=== PATIENT | male | born 1950 | race Caucasian/White ===

== ENCOUNTER 2019-08-06 08:39 | Outpatient (REF) | payer MEDICARE, SELFPAY ==
[2019-08-06 11:30] LABS: Estmated Average Glucose 123; Hemoglobin A1C 5.9 % (4.0-6.0)
[2019-08-06 12:06] LABS: Chol HDL Ratio 2.68 mg/dL (1.0-5.00); Cholesterol 150 mg/dL (0-200); Glucose 93 mg/dL (65-115); HDL Cholesterol 56 mg/dL (60-100); LDL Cholesterol Calculated 86 mg/dL (50-129); LDL HDL Ratio 1.54 RATIO (0.00-3.22); Triglycerides 39 mg/dL (0-150)
== END 2019-08-06 08:40 | disposition home or self-care (01) ==
LOC: LAB 08:39
PROVIDERS: Family Provider Electrodiagnostic Medicine; PCP Electrodiagnostic Medicine; Visit Provider Dermatology
DX: Z01.89 Encounter for other specified special examinations (principal)
CPT/HCPCS: 80061; 82947; 83036

== ENCOUNTER → 2022-01-03 15:45 | Outpatient (BNVA) | payer MEDICARE, SELFPAY | PROVIDERS: Family Provider Electrodiagnostic Medicine; PCP Electrodiagnostic Medicine; Visit Provider Internal Medicine Cardiovascular Disease | DX: I25.10 Atherosclerotic heart disease of native coronary artery without angina pectoris (principal); E78.5 Hyperlipidemia, unspecified; I10 Essential (primary) hypertension; F17.200 Nicotine dependence, unspecified, uncomplicated; I25.2 Old myocardial infarction | CPT/HCPCS: 99214 ==

== ENCOUNTER → 2022-11-07 08:16 | Outpatient (BNVA) | payer MEDICARE, SELFPAY | PROVIDERS: Family Provider Electrodiagnostic Medicine; PCP Electrodiagnostic Medicine; Visit Provider Dermatology | DX: C44.629 Squamous cell carcinoma of skin of left upper limb, including shoulder (principal) | CPT/HCPCS: 12032; 17313 ==

== ENCOUNTER → 2022-11-21 08:47 | Outpatient (BNVA) | payer MEDICARE, SELFPAY | PROVIDERS: Family Provider Electrodiagnostic Medicine; PCP Electrodiagnostic Medicine; Visit Provider Dermatology | DX: Z48.02 Encounter for removal of sutures (principal) | CPT/HCPCS: 99212 ==

== ENCOUNTER → 2023-12-02 10:00 | Outpatient (BNVA) | payer MEDICARE, SELFPAY | PROVIDERS: Family Provider Electrodiagnostic Medicine; PCP Electrodiagnostic Medicine; Visit Provider Nurse Practitioner Family | DX: M54.9 Dorsalgia, unspecified (principal) | CPT/HCPCS: 81000 ==

== ENCOUNTER 2024-02-04 07:47 | Outpatient (CLI) | payer MEDICARE, SELFPAY ==
--- NOTE | 2024-02-04 07:51 | MR_ITS ---
WS: [id number] MRI HEAD WITHOUT CONTRAST TECHNIQUE: Sagittal T1, T2 axial, T2 axial FLAIR, axial and coronal T1 images, axial susceptibility w eighted imaging, axial diffusion weighted images, and coronal T2 images were obtained. CLINICAL INFORMATION: VISUAL DISTURBANCE COMPARISON: None. FINDINGS: No evidence of restricted diffusion to suggest acute ischemia. Ventricular system and basal cisterns are patent. Minimal small vessel changes. Mild parenchymal volume loss. Few tiny chronic lacunar infa rcts in the cerebellum. Normal vascular flow voids at the skull base. No extra-axial fluid collection s. No evidence of mass or mass effect. Mild mucosal thickening paranasal sinuses. Mild mucosal thicke delma in the LEFT greater than RIGHT mastoid air cells. Normal posterior nasopharynx. No hemosiderin o n the susceptibility weighted images. Normal optic chiasm and pituitary infundibulum. Temporal lobes and hippocampal formations are normal in appearance. MR/MR head wo con* [id number] IMPRESSION: 1. No evidence of restricted diffusion to suggest acute ischemia. 2. Minimal small vessel changes. Mild parenchymal volume loss. 3. 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 4. No hemosiderin on the susceptibility weighted images. 5. No other acute findings.
== END 2024-02-04 07:48 | disposition home or self-care (01) ==
LOC: RAD 07:47
PROVIDERS: Family Provider Electrodiagnostic Medicine; PCP Electrodiagnostic Medicine; Visit Provider Electrodiagnostic Medicine
DX: H53.9 Unspecified visual disturbance (principal)
CPT/HCPCS: 70551

== ENCOUNTER → 2024-09-15 09:40 | Outpatient (BNVA) | payer MEDICARE, SELFPAY | PROVIDERS: Family Provider Electrodiagnostic Medicine; PCP Electrodiagnostic Medicine; Referring Provider Electrodiagnostic Medicine; Visit Provider Specialist | DX: G43.909 Migraine, unspecified, not intractable, without status migrainosus (principal); I10 Essential (primary) hypertension; E78.5 Hyperlipidemia, unspecified; I25.10 Atherosclerotic heart disease of native coronary artery without angina pectoris; E53.8 Deficiency of other specified B group vitamins; G90.2 Horner's syndrome; I25.2 Old myocardial infarction; E11.69 Type 2 diabetes mellitus with other specified complication | CPT/HCPCS: 36415; 82607; 85651; 99204 ==

== ENCOUNTER 2024-10-07 13:34 | Outpatient (CLI) | payer MEDICARE, SELFPAY ==
--- NOTE | 2024-10-07 14:00 | CT_ITS ---
WS: [id number] CTA HEAD AND NECK TECHNIQUE: Contrast enhanced CTA of the head and neck with coronal and sagittal reformatted images and maximum intensity projection (MIP) images. NASCET criteria utilized. 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 DLP: 1212.[address] scans at [facility] use at least one of these dose optimization techniques: automated exposure control; mA and/or kV adjustment per patient size (includes targeted exams where dose is matched to clinical indication); or iterative reconstruction. FINDINGS: Mild small vessel changes. Mild parenchymal volume loss. Paranasal sinuses are well aerated. Prior postoperative changes RIGHT mastoidectomy. RIGHT: RIGHT ICA stenosis 56%. Moderate calcified atheromatous plaque. LEFT: No significant LEFT ICA stenosis. Mild calcified atheromatous plaque carotid bulb extending into the ICA. Less than 50% ICA stenosis. LEFT dominant vertebral artery. INTRACRANIAL CTA: Proximal basilar artery is patent. Normal vascularity to the MACHINE II TRIMMER territory bilaterally. Persistent RIGHT MACHINE II TRIMMER. Both ICAs are patent at the skull base. Minimal cavernous carotid calcification. Absent RIGHT A1 segment. Azygos DENILSON. Normal vascularity to the DENILSON territory. Normal vascularity to the MCA territories bilaterally. No evidence of proximal flow-limiting stenosis. CT/CT angio headneck* [id number] IMPRESSION: 1. RIGHT ICA stenosis 56%. Moderate calcified atheromatous plaque. 2. Less than 50% LEFT ICA stenosis. 3. LEFT dominant vertebral artery. Tiny RIGHT vertebral artery mainly ends in PICA. 4. Persistent RIGHT MACHINE II TRIMMER. Absent RIGHT A1 segment. 5. No evidence of proximal flow-limiting intracranial stenosis.
[2024-10-07 14:04] LABS: Blood Urea Nitrogen 11 mg/dL (8-23)
[2024-10-07] MEDS: iohexol 350 mg/mL 500 mL Btl (per mL) IV (14:19)
== END 2024-10-07 13:35 | disposition home or self-care (01) ==
LOC: RAD 13:36
PROVIDERS: Family Provider Electrodiagnostic Medicine; PCP Electrodiagnostic Medicine; Visit Provider Specialist
DX: G90.2 Horner's syndrome (principal); I25.2 Old myocardial infarction; E11.69 Type 2 diabetes mellitus with other specified complication; E78.5 Hyperlipidemia, unspecified; I65.23 Occlusion and stenosis of bilateral carotid arteries; R93.0 Abnormal findings on diagnostic imaging of skull and head, not elsewhere classified; G31.89 Other specified degenerative diseases of nervous system; Z98.890 Other specified postprocedural states
CPT/HCPCS: 70496; 70498; 82565; 84520